=== PATIENT | female | born 1985 | race Caucasian/White ===

== ENCOUNTER 2016-06-30 07:58 | Inpatient (IN) | payer OTHER ==
[~2016-06-30] VITALS: Ht 154.9 cm; Wt 120.2 kg
[~2016-06-30 07:58] MED LIST: DICLEGIS DR 101 EACH PO; PRENATAL TABLE1 EAC2 PO; PROGESTERONE100 M2 PO; ZOFRAN ODT4 M1 PO
[2016-06-30 09:27] LABS: ABSOLUTE BASOPHIL COUNT 0 /CUMM (0.0-0.2); ABSOLUTE EOSINOPHIL COUNT 0.1 /CUMM (0.0-0.7); ABSOLUTE GRANULOCYTE CT 9.4 /CUMM (1.4-6.5); ABSOLUTE LYMPH COUNT 2.2 /CUMM (1.2-3.4); ABSOLUTE MONOCYTE COUNT 0.6 /CUMM (0.10-0.60); BASOPHIL % 0.2 % (0.0-2.0); EOSINOPHIL % 0.4 % (0-5); GRANULOCYTE % 76.7 % (42.2-75.2); HEMATOCRIT 33.7 % (37-47); MEAN CORPUSCULAR HGB 28.9 PG (27.0-31.0); MEAN CORPUSCULAR HGB CONC 33.2 G/DL (33.0-37.0); MEAN CORPUSCULAR VOLUME 86.9 FL (81.0-99.0); MEAN PLATELET VOLUME 10.1 FL (7.4-10.4); PLATELET COUNT 226 /CUMM (130-400); RBC DISTRIBUTION WIDTH 14.1 % (11.5-14.5); RED BLOOD CELL CT 3.87 /CUMM (4.20-5.40); WHITE BLOOD CELL COUNT 12.3 /CUMM (4.8-10.8)
--- NOTE | 2016-07-01 21:37 | History & Physical ---
General Information and HPI MD Statement: I have seen and personally examined CLAUDINE DAHL and documented this H&P. The patient is a 31 year old female at [40] weeks and [5] days gestation who presented with a chief complaint of [postdates; oligohydramnios]. Source of Information: police History of Present Illness: Patient is a 31-year-old 1 para 0 LMP 09/20/2015 EDC 06/26/2016 at 40 weeks and 5 days who presents for induction of labor secondary to postdates and oligohydramnios. care is significant for high BMI, O- blood type and father with Rh- blood type as well; pituitary adenoma, polycystic ovaries and polyhydramnios with a fluid level of 28 cm. Estimated weight is 7 pounds. Cervix is unripe long thick and closed and we'll begin induction with misoprostol cervical ripening. 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 EENTM: Reports: no symptoms. Cardiovascular: Reports: no symptoms. Respiratory: Reports: no symptoms. GI: Reports: no symptoms. Genitourinary: Reports: no symptoms. Musculoskeletal: Reports: no symptoms. Skin: Reports: no symptoms. Neurological/Psychological: Reports: no symptoms. Hematologic/Endocrine: Reports: no symptoms. Immunologic/Allergic: Reports: no symptoms. All Other Systems: Reviewed and Negative Exam & Diagnostic Data Obstetric Exam Wgt Gained During : 40 pounds Pelvimetry: Gynecoid Dilation (cm): 0 Effacement (%): 0 Station: -2 Membranes: intact Fluid: unknown Fundal Height (cm): 41 Multiple Gestation? No Contractions: None #1 - FHR Baseline: 145 Category: 1 Estimated Weight: 7 pounds Presentation: Cephalic Patient for Induction? Yes Valdivia Score Valdivia Score Response Value Cervix Position: posterior 0 Cervix Consistency: medium 1 Cervix Effacement: 0-30% 0 Cervix Dilation: closed 0 Cervix Station: -2 1 Total 2 Physical Exam: HEENT: Normocephalic atraumatic Chest: Clear to auscultation bilaterally Cardiovascular: Normal S1, S2 Abdomen: Obese, gravid, cephalic, 7 pounds Pelvic: Long thick closed posterior Extremities no clubbing cyanosis or edema Neurologic: Nonfocal Labs Blood Type & Rh: Oh negative Antibody Screen: Negative Hct/Hgb & Platelets #1: 38, 12, 265 Hct/Hgb & Platelets #2: 35, 11, 212 Rubella: Immune VDRL #1: Nonreactive VDRL #2: Nonreactive HbsAg: Negative HIV #1: Negative HIV #2 Negative 1 Hr P Group B Strep: Negative Initial Ultrasound: Within normal limits Anatomy Ultrasound: Within normal limits Ultrasound for EFW: 6-1/2 pounds Genetic Testing: Negative Last 24 Hrs of Labs/Rm: Microbiology 07/01 2127 URINE ROUT: Urine Culture - ORD 07/01 1818 URINE ROUT: Urine Culture - RECD Assessment/Plan Assessment/Plan: 40 weeks 5 days post dates with polyhydramnios and poor Valdivia score Plan: Misoprostol cervical ripening followed by Pitocin induction of labor As Ranked By This Provider Problem List: 1. Core Measures/Miscellaneous Venous Thromboembolism VTE Risk Factors: Obesity, /, Surgery VTE Contraindications: No Contraindications VTE Prophylaxis Ordered Inpt: Mech & Pharm VTE Diagnosis: No Beta Maranda Is Beta Maranda a Home Med? No Antibiotics Is Patient on Antibiotics? Yes
--- NOTE | 2016-07-01 21:41 | PN- Obstetrical ---
Subjective Subjective: No complaints Review of Systems: Negative Objective Last 24 Hrs of Vital Signs/I&O Vital signs stable Obstetric Exam Dilation (cm): 4 Effacement (%): 90 Station: -2 Membranes: intact Fluid: unknown Multiple Gestation? No Contractions: Every 2-3 #1 - FHR Baseline: 170 Category: 2 Estimated Weight: 7 pounds Presentation: Cephalic Assessment/Plan Assessment/Plan Nonreassuring heart rate testing remote from delivery Plan: Primary section; patient agrees with plan Problem List: 1. 2. Non-reassuring electronic monitoring tracing
--- NOTE | 2016-07-01 23:46 | Operative Report ---
Operative/Inv Procedure Report Surgery Date: 07/01/16 Name of Procedure: Primary section Pre-Operative Diagnosis: Nonreassuring heart rate testing Post-Operative Diagnosis: Same Estimated Blood Loss: 650 mL Surgeon/Assessor: CATRINA MACIAS MD,BROCK Villagomez M.D. Anesthesia: epidural Operative/Procedure Note Note: The patient was brought to the operating room and placed on the OR table in the dorsal supine position. She had a previous epidural and this was bolused and tested. Venodyne boots were previously placed and activated. The abdomen was prepped and draped in usual sterile fashion. A Vidal catheter had previously been placed and was draining clear yellow urine. The skin was tested and a Pfannenstiel skin incision was made with a scalpel and taken down to the layer of the fascia. The fascia was nicked in the midline and extended bilaterally. Underlying rectus muscles were sharply dissected away. The peritoneal cavity was then entered bluntly and peritoneal lining was very thick with adipose tissue. This was extended bilaterally. Rectus muscles were also transected for better exposure. A bladder blade was inserted and a bladder flap was created using Metzenbaum scissors. Anterior wall of the uterus appeared to be Couvel[place] in appearance. A low transverse uterine incision was made with scalpel and the membranes were ruptured revealing a copious amount of clear fluid. A liveborn male infant was delivered atraumatically and handed off to the waiting pediatricians. A cord pH was obtained and later returned at 7.30. Placenta was then removed easily and appeared to be calcified. The uterus was exteriorized and was noted to be atonic. It was injected with Pitocin and a dose of Methergine was given 0.2 IV. The contents of the uterus were cleaned out with a wet lap sponge and the uterus was closed in 2 layers of 0 Polysorb, the second imbricating the first. The abdomen and pelvis were copiously irrigated and the uterus was placed back into the abdominal cavity. The suture line was once again visualized and noted to be hemostatic. The peritoneum was reapproximated using 2-0 Polysorb in a running nonlocking fashion. Rectus muscles were reapproximated using 0 Polysorb in a mattress suture. The fascia was then closed using 0 Maxon in a running nonlocking fashion. Subcutaneous tissues were irrigated and coagulated were needed was were closed with a layer of 20 plain suture material in a running nonlocking fashion. [place] were closed on the skin. A dry sterile dressing was applied to the wound. The fundus was expressed and a bimanual exam was performed. The patient was then transferred to the stretcher and taken to the recovery room in satisfactory condition. All needle, sponge, and instrument counts were correct at end of procedure 2.
[2016-07-02 00:17] VITALS: BP 136/56
[2016-07-02 02:10] LABS: ABSOLUTE BASOPHIL COUNT 0 /CUMM (0.0-0.2); ABSOLUTE EOSINOPHIL COUNT 0 /CUMM (0.0-0.7); ABSOLUTE GRANULOCYTE CT 13.4 /CUMM (1.4-6.5); ABSOLUTE LYMPH COUNT 0.8 /CUMM (1.2-3.4); ABSOLUTE MONOCYTE COUNT 0.5 /CUMM (0.10-0.60); BASOPHIL % 0.3 % (0.0-2.0); EOSINOPHIL % 0 % (0-5); GRANULOCYTE % 91.1 % (42.2-75.2); HEMATOCRIT 31.9 % (37-47); MEAN CORPUSCULAR HGB 29.4 PG (27.0-31.0); MEAN CORPUSCULAR HGB CONC 34.5 G/DL (33.0-37.0); MEAN CORPUSCULAR VOLUME 85.4 FL (81.0-99.0); MEAN PLATELET VOLUME 9.7 FL (7.4-10.4); PLATELET COUNT 203 /CUMM (130-400); RBC DISTRIBUTION WIDTH 14.3 % (11.5-14.5); RED BLOOD CELL CT 3.73 /CUMM (4.20-5.40)
[2016-07-02 02:44] LABS: WHITE BLOOD CELL COUNT 14.8 /CUMM (4.8-10.8)
[2016-07-02 09:50] LABS: ABSOLUTE BASOPHIL COUNT 0 /CUMM (0.0-0.2); ABSOLUTE EOSINOPHIL COUNT 0 /CUMM (0.0-0.7); ABSOLUTE GRANULOCYTE CT 15.6 /CUMM (1.4-6.5); ABSOLUTE LYMPH COUNT 1.3 /CUMM (1.2-3.4); ABSOLUTE MONOCYTE COUNT 1.7 /CUMM (0.10-0.60); BASOPHIL % 0.1 % (0.0-2.0); EOSINOPHIL % 0 % (0-5); HEMATOCRIT 29.5 % (37-47); MEAN CORPUSCULAR HGB 29.1 PG (27.0-31.0); MEAN CORPUSCULAR HGB CONC 33.6 G/DL (33.0-37.0); MEAN CORPUSCULAR VOLUME 86.8 FL (81.0-99.0); MEAN PLATELET VOLUME 10.4 FL (7.4-10.4); PLATELET COUNT 180 /CUMM (130-400); RBC DISTRIBUTION WIDTH 14.4 % (11.5-14.5); RED BLOOD CELL CT 3.41 /CUMM (4.20-5.40); WHITE BLOOD CELL COUNT 18.6 /CUMM (4.8-10.8)
[2016-07-02 10:28] LABS: GRANULOCYTE % 83.9 % (42.2-75.2)
--- NOTE | 2016-07-02 13:30 | Cons- Psychiatry ---
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 Talia received appropriate care, was postdated, was induced, and ultimately required section for nonreassuring monitoring. Per the notes she underwent an uneventful . She has begun breast-feeding. Psychiatry was consulted for recommendations for further management given her history of a psychiatric disorder. Talia has a history of significant obsessive-compulsive disorder, for which she underwent treatment through the OCD research clinic at [place], with her primary therapist being Dr. Demetria Cox, in 2014. At that time she was treated pharmacologically with fluoxetine 40 mg daily, and underwent exposure and response prevention (ERP) therapy for her OCD, which primarily took the form of checking, which could go on for hours, and impaired her ability to function. She reports that the combination of pharmacology and ERP was extremely beneficial for her, which dramatically reduced her symptoms and improved her functioning. She weaned off the fluoxetine prior to her , has not required any formal psychiatric treatment during the , and feels her OCD symptoms remain in good control. She reports general euthymia throughout her , with the last few weeks notable for some mild mood lability and anxiety. At no time was her functioning impaired by any mood or anxiety symptoms. She reports no history of suicide attempts, no history of violence or homicidal ideation, and denies current or recent SI or HI. She has no thoughts or intentions to harm her child. She denies any manic or psychotic symptoms. Talia confides that she was quite concerned about depression, and was specifically concerned that she was unable to have a spontaneous vaginal delivery, because of her understanding that this might reduce the possibility of depression. At this time however, she reports good mood, strong future orientation and excitement about her first child, reports an excellent support system consisting of her and family and friends who are located nearby. Of note, I screened Talia for safety concerns such as suicidal or homicidal ideation as well as intent or thoughts to harm her child, after asking all visitors including her to leave the room. Past psychiatric/substance history: Please see above. She notes that her onset of OCD symptoms began roughly around age 21. She was initially treated by her primary care physician around 2013 with Paxil. She was cross tapered from Paxil to fluoxetine 3 yells OCD clinic, however had significant difficulties with Paxil withdrawal. She reports tolerating fluoxetine very well. Denies taking any other psychiatric medications historically. She denies any history of psychiatric hospitalizations, suicide attempts, violence or homicidal ideation she reports a history of mild depressive symptoms however denies that these significantly interfered with her function. She overwhelmingly reports that her most function impairing psychiatric condition has been OCD, which no longer is an issue for her status post treatment. She denies any current or recent substance abuse. Past medical history: As noted above. Pertinent medications: Started on sertraline by deblocker last evening. Family psych history: Unknown Social history: . 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 She enjoys her work but finds it to be quite stressful. Has good support system in addition to her nearby. Review of systems: Most notable for abdominal pain is consistent with her recent section. Otherwise remainder of review of systems is negative. Vitals and labs reviewed and were noncontributory. No imaging. Mental status exam: Well appearing, well groomed overweight female resting comfortably on hospital bed. Observed to be properly interacting with her . Fully cooperative with interview, with good eye contact. No abnormal movements noted. Speech was within normal limits. Mood was "okay ", affect was euthymic, non-labile, congruent, full range. Thought process was logical and linear, thought content was within normal limits. She denies suicidal or homicidal ideation, denies perceptual disturbances. Cognition was intact. Insight and judgment were good. Assessment: 31-year-old female with history of OCD that responded well to pharmacological and therapeutic approaches, currently status post with her first child. She is appropriately concerned about return of her symptoms given the stress of the period. However, at this time her mental status exam does not evidence any significant disturbance in any psychiatric domains. Encouragingly, she reports a strong social support system and has received significant benefit from psychotherapeutic approaches in the past. She is future oriented, and does not evidence any current or recent or remote safety concerns. Recommendations: -Does not evidence any imminent risk toward herself or others at this time. No indication for psychiatric hospitalization. -The use of any medication requires appropriate balancing of risk and benefit. At this time, the current clinical situation suggests that Talia can be adequately prophylaxed against return of untoward psychiatric symptoms such as depressed mood, with a psychotherapeutic approach first, and then a pharmacological approach secondarily, if needed. She has demonstrated her ability to derive great benefit from psychotherapy, and remains very interested in this approach for support, now . Given no current indications of severe symptoms, as well as strong family and friend support, there does not appear to be adequate evidence to recommend pharmacological treatment at this time, especially while . Would therefore recommend discontinuation of sertraline. Talia is in agreement with this decision tree as well. -Psychiatry consultation service will follow up with Talia on Monday. The goal will be to help identify outpatient therapy options to support her in the period she is interested in attempting to see Dr. Cox at [place] again if possible. If this is not possible, she is highly amenable to being referred to community resources. -Thank you for this consult.
--- NOTE | 2016-07-02 19:42 | Labor & Delivery Summary ---
Delivery Summary Section: Section: primary Indication: nonreassuring tracing Placenta: Placenta: abnormal Anesthesia: epidural Baby's Weight: 6-15 Apgars - 1 Min: 9 Apgars - 5 Min: 9
[2016-07-03 09:18] LABS: ABSOLUTE BASOPHIL COUNT 0.1 /CUMM (0.0-0.2); ABSOLUTE EOSINOPHIL COUNT 0.1 /CUMM (0.0-0.7); ABSOLUTE GRANULOCYTE CT 11.5 /CUMM (1.4-6.5); ABSOLUTE LYMPH COUNT 2.6 /CUMM (1.2-3.4); ABSOLUTE MONOCYTE COUNT 1.2 /CUMM (0.10-0.60); BASOPHIL % 0.4 % (0.0-2.0); EOSINOPHIL % 0.7 % (0-5); GRANULOCYTE % 74.2 % (42.2-75.2); HEMATOCRIT 27.7 % (37-47); MEAN CORPUSCULAR HGB 29.1 PG (27.0-31.0); MEAN CORPUSCULAR HGB CONC 33.1 G/DL (33.0-37.0); MEAN CORPUSCULAR VOLUME 88.1 FL (81.0-99.0); MEAN PLATELET VOLUME 9.9 FL (7.4-10.4); PLATELET COUNT 156 /CUMM (130-400); RBC DISTRIBUTION WIDTH 14.9 % (11.5-14.5); RED BLOOD CELL CT 3.14 /CUMM (4.20-5.40); WHITE BLOOD CELL COUNT 15.5 /CUMM (4.8-10.8)
--- NOTE | 2016-07-03 14:05 | PN- Post Delivery/GYN ---
Subjective Subjective: COUGH Review of Systems: COUGH Objective Last 24 Hrs of Vital Signs/I&O VSS Physical Exam: ABD SOFT INCIDSION C/D/I Assessment/Plan Assessment/Plan S/P C/S POD2 NEEDS TRC PT REFUSED ANTIDEPRESSANT TODAY; HAS DECIDED AGAINST MY ADVICE TO WAIT AND SEE IF SHE BECOMES DEPRESSED; I RECOMMEND SHE CONTINUE PREVENTATIVELY DISCHARGE TOMORROW Problem List: 1. Non-reassuring electronic monitoring tracing
[2016-07-03] MEDS ORDERED: DOCUSATE SODIU100 M3 PO (14:08)
[2016-07-03] MEDS ORDERED: IBUPROFEN800 M1 PO (14:08)
[2016-07-03] MEDS ORDERED: PERCOCET 5-3251 EACH PO (14:08)
[2016-07-03] MEDS ORDERED: SERTRALINE HCL50 MG PO (14:08)
[2016-07-03] MEDS ORDERED: GUAIFENESI100 MG/5 M PO (14:08)
--- NOTE | 2016-07-04 10:26 | PN- Psychiatry ---
Assessment/Plan Impression: The patient was seen by Dr. Walker Tapia on 07/02/16. The patient was concerned about the possible emergence of depression. Today, we discussed "blues" versus depression. The patient believes her current mild symptoms of depression are due to post-delivery hormonal changes, and her mild anixety due to the uncertainty of caring for her first baby at home. Her supportive spouse and [id number] were present later in the interview, and the patient feels she can care safely for her baby. She verbalizes understanding of the symptoms of depression, and will notify her family and caregivers/treaters, if these arise. This is her first child, so no prior history. She had been treated by Dr. Demetria Cox at [facility] successfully with talk and Prozac, which she has weaned off, due to remission of symptoms. Talia states that she knows how to contact Dr. Cox by phone and email. The patient remains concerned about depression, and agrees to come to [facility] for an intake interview. She would prefer to not start psychotropic medication, at this time, but remains open to the possibility, if necessary. She states that she would like to consider fluoxetine/Prozac, if medication becomes necessary. Suggestion: 1. No psychotropic interventions, at this time. 2. Intake appointment at [facility] with Sean at [address] [place] [address], at 815AM on 07/12/2016, . The patient was given a card with this information. The patient is cleared for discharge from a psychiatry viewpoint. Thank-you for asking us to participate in Talia's care. Malcolm Sheridan APRN, Pager [phone] Subjective Subjective: Patient seen today, 07/04/16, at 1000, in room 305. The patient is calm, cooperative, conversational, and interacting with her appropriately, and is currently the child. She is alert and oriented. Denies SI/HI, and feels safe to go home with her baby. She reports support from her , her mother and her MIL. Denies AVH, and presents no oumar delusions. Denies intrusive thoughts. She has a history of OCD, but denies any rituals or checking. Current depressive feelings 10, anxiety /10; 02/21 would be the most severe. Objective Results Last 24 Hrs of Labs/Mics: Laboratory Tests 07/03 06 Hematology CBC w Diff NO MAN DIFF REQ WBC (4.8 - 10.8 /CUMM) 15.5 H RBC (4.20 - 5.40 /CUMM) 3.14 L Hgb (12.0 - 16.0 G/DL) 9.1 L Hct (37 - 47 %) 27.7 L MCV (81.0 - 99.0 FL) 88.1 MCH (27.0 - 31.0 PG) 29.1 RDW (11.5 - 14.5 %) 14.9 H Plt Count (130 - 400 /CUMM) 156 MPV (7.4 - 10.4 FL) 9.9 Gran % (42.2 - 75.2 %) 74.2 Lymphocytes % (20.5 - 51.1 %) 16.9 L Monocytes % (1.7 - 9.3 %) 7.8 Eosinophils % (0 - 5 %) 0.7 Basophils % (0.0 - 2.0 %) 0.4 Absolute Granulocytes (1.4 - 6.5 /CUMM) 11.5 H Absolute Lymphocytes (1.2 - 3.4 /CUMM) 2.6 Absolute Monocytes (0.10 - 0.60 /CUMM) 1.2 H Absolute Eosinophils (0.0 - 0.7 /CUMM) 0.1 Absolute Basophils (0.0 - 0.2 /CUMM) 0.1 PUBS MCHC (33.0 - 37.0 G/DL) 33.1
--- NOTE | 2016-07-21 09:52 | Surgical Discharge Summary ---
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 Hebrew Review of Systems: Negative Hospital Course Course Attending Physician: BROCK VILLALBA MD Primary Care Physician: PATIENT HAS NO PRIMARY CARE DR Hospital Course: Patient was admitted for induction of labor and failed induction and had a primary . She went to recovery in good condition on postop day #1 Vidal was discontinued vital signs are stable. Diet was advance activity was increased. She was seen by psychiatry for history of depression. On postoperative day #2 patient continued to do well was tolerating ambulating and voiding. Postoperative day #3 the patient was discharged home Allergies: Uncoded Allergies: RABBITS (Intermediate, HIVES 01/03/14) Disposition Summary Disposition Principal Diagnosis: Term Additional Diagnosis: Failed induction of labor Discharge Disposition: home or self care Discharge Instructions General Discharge Information Code Status: Full Code Patient's Diet: Regular Patient's Activity: Pelvic rest Follow-Up Instructions/Appts: 1 week Medications at Discharge Discharge Medications: Stop taking the following medications: Doxylamine/Pyridoxine HCl (Diclegis Dr 10-10 MG Tablet) 1 EACH TABLET.DR ORAL Every night Qty = 60 Progesterone,Micronized (Progesterone) 100 MG CAPSULE ORAL TWICE DAILY Qty = 60 Ondansetron (Zofran Odt) 4 MG TAB.RAPDIS ORAL EVERY SIX HOURS as needed for NAUSEA Qty = 20 Continue taking these medications: Vit No.130/Iron/FA ( Tablet) 1 EACH TABLET 1 Tablet ORAL DAILY Comments: PER PT Start taking the following new medications: Ibuprofen (Ibuprofen) 800 MG TABLET 800 Milligram ORAL EVERY SIX HOURS NEEDED as needed for UTERINE CRAMPING Qty = 36 No Refills Comments: Last Taken:07/04/16 Time:0610 Oxycodone HCl/Acetaminophen (Percocet 5-325 MG Tablet) 5 MG-325 MG TABLET 1 Tablet ORAL EVERY 4 HOURS NEEDED as needed for PAIN SCALE 4-6 (MODERATE ) Qty = 24 No Refills Comments: Last Taken:07/04/16 Time:0830 Sertraline HCl (Sertraline HCl) 50 MG TABLET 50 Milligram ORAL DAILY Qty = 60 No Refills Guaifenesin (Guaifenesin) 100 MG/5 ML LIQUID 10 Milliliters ORAL EVERY SIX HOURS NEEDED as needed for COUGH Days = 10 No Refills Comments: Last Taken:07/04/16 Time:0840 Docusate Sodium (Docusate Sodium) 100 MG CAPSULE 100 Milligram ORAL AT BEDTIME as needed for STOOL SOFTENER Qty = 60 No Refills
== END 2016-07-04 11:50 | DRG 765 ==
LOC: GNO 07:58
PROVIDERS: ADMIT Obstetrics & Gynecology
PROC: 10D00Z1 Extraction of Products of Conception, Low, Open Approach (ICD-10-PCS; principal; 2016-07-01)
DX: O76 Abnormality in fetal heart rate and rhythm complicating labor and delivery (principal); O41.03X0 Oligohydramnios, third trimester, not applicable or unspecified; Z3A.40 40 weeks gestation of pregnancy; Z37.0 Single live birth; O48.0 Post-term pregnancy
CPT/HCPCS: GNOP; GNOS; 36415; 81001; 87040; 87086; 88307; 99232; J0131; J0690; J1650; J2210; J3105; J7120